=== PATIENT | male | born 1980 | race Caucasian/White ===

== ENCOUNTER 2016-10-20 00:52 | Emergency (ER) | payer SELFPAY ==
[~2016-10-20] VITALS: Ht 177.8 cm; Wt 97.5 kg
[2016-10-20] MEDS ORDERED: HYDROmorphone HCL 2 MG/ML VL IV ONE ×2 (02:15→05:00)
[2016-10-20] MEDS ORDERED: ONDANSETRON HCL 4 MG/2 ML VIAL IV ONE (02:15)
[2016-10-20 09:10] VITALS: BP 155/91
[2016-10-20] MEDS ORDERED: NALBUPHINE HCL 10 MG/1ml INJECTION IV ONE (09:30)
[2016-10-20] MEDS ORDERED: PROMETHAZINE HCL 25 MG/ML 1ML IV ONE (09:30)
== END 2016-10-20 09:34 | disposition short-term general hospital (02) ==
LOC: ER 01:03
DX: M79.605 Pain in left leg (principal); S52.302A Unspecified fracture of shaft of left radius, initial encounter for closed fracture; V49.59XA Passenger injured in collision with other motor vehicles in traffic accident, initial encounter; Y93.89 Activity, other specified; Y99.8 Other external cause status; Y92.410 Unspecified street and highway as the place of occurrence of the external cause
CPT/HCPCS: 70450; 72125; 73090; 96374; 96375; 96376; 99284; J1170; J2300; J2405; J2550